=== PATIENT | male | born 1945 | race Caucasian/White ===

== ENCOUNTER → 2019-01-29 | Outpatient (CLI) | payer MEDICARE, BC ==
--- NOTE | 2019-01-29 13:39 | RAD ---
EXAM DESCRIPTION: Shoulder,Left 2 or More Views CLINICAL HISTORY: 73 years Male, PAIN IN LEFT SOULDER COMPARISON: None. FINDINGS: Four views of the left shoulder show no acute fracture or malalignment. Degenerative changes in the left AC joint including undersurface spurring. No soft tissue abnormality. Partially visualized degenerative changes in the cervical spine at several levels. IMPRESSION: Left AC joint degeneration with undersurface spurring. Degenerative changes in the cervical spine only partially visualized. Electronically signed by: Artie Tony MD 01/29/2019 1:37 PM [facility]
== END ==
LOC: RAD 10:00
PROVIDERS: ATTEND Orthopaedic Surgery
DX: M19.012 Primary osteoarthritis, left shoulder (principal); M47.892 Other spondylosis, cervical region

== ENCOUNTER → 2019-03-13 | Outpatient (CLI) | payer MEDICARE, BC ==
--- NOTE | 2019-03-15 07:34 | MRI ---
Study: MRI of the Left Shoulder. Indication: ROTATOR CUFF SYNDROME-LEFT Technique: Multiplanar, multi sequence MRI of the left shoulder was obtained without intravenous contrast. Comparison: January 29, 2019. Findings: Moderate hypertrophic AC joint osteoarthritis. Type II acromion. Trace subacromial/subdeltoid bursal fluid Supraspinatus and infraspinatus tendinosis. Attenuation anterior supraspinatus tendon insertion with irregular intermediate grade interstitial/bursal surface tearing. Involved area measures approximately 10 mm AP by 6 mm transverse and involves up to 50% of expected tendon thickness. No complete rupture or tendon retraction. Subscapularis tendinosis with low-grade insertional tearing superiorly. Rotator cuff musculature normal without atrophy, fatty infiltration, or intramuscular edema. Fluid distention extracapsular long head biceps tendon sheath. Subtle intracapsular tendinosis. Anterior superior sublabral foramen. Circumferential labral truncation and degeneration. Minimal glenohumeral joint osteoarthritis. Thickening and edema inferior glenohumeral ligament which can be seen with adhesive capsulitis. Impression: Supraspinatus and infraspinatus tendinosis with attenuation of the anterior supraspinatus tendon insertion where there is irregular intermediate grade interstitial/bursal surface tearing Subscapularis tendinosis with low-grade interstitial tearing superiorly. Intracapsular long head biceps tendinosis. Circumferential labral tearing and truncation. Minimal glenohumeral joint osteoarthritis. Adhesive capsulitis. Moderate hypertrophic AC joint osteoarthritis. Electronically signed by: Suhas Dugan MD 03/15/2019 7:33 AM [facility]
== END ==
LOC: MRI 13:00
PROVIDERS: ATTEND Orthopaedic Surgery
DX: M75.102 Unspecified rotator cuff tear or rupture of left shoulder, not specified as traumatic (principal); M75.92 Shoulder lesion, unspecified, left shoulder; M19.012 Primary osteoarthritis, left shoulder; M75.02 Adhesive capsulitis of left shoulder